=== PATIENT | male | born 1965 | race Caucasian/White ===

== ENCOUNTER 2017-04-07 12:50 | Emergency (ER) | payer OTHER ==
[~2017-04-07] VITALS: Ht 188 cm; Wt 80.0 kg
[~2017-04-07 12:50] MED LIST: GUAI1TAB21 PO; MULT-464 PO; OMEP20CA9 PO
[2017-04-07] MEDS ORDERED: LIDOCAINE GEL 2%, 5ML ONE (13:24)
[2017-04-07] MEDS ORDERED: LIDOCAINE GEL 2%, 5ML TP ONE (13:30)
[2017-04-07 14:25] VITALS: BP 146/99
[2017-04-07] MEDS ORDERED: BACITRACIN ZINC OINT 500U/GM, 0.9 GM ONE (14:36)
== END 2017-04-07 15:44 | disposition home or self-care (01) ==
LOC: ED 13:46
DX: S42.122A Displaced fracture of acromial process, left shoulder, initial encounter for closed fracture (principal); S80.211A Abrasion, right knee, initial encounter; S80.212A Abrasion, left knee, initial encounter; W19.XXXA Unspecified fall, initial encounter; Y93.89 Activity, other specified; Y92.410 Unspecified street and highway as the place of occurrence of the external cause; Y99.8 Other external cause status
CPT/HCPCS: 29105; 99284